=== PATIENT | male | born 1950 | race American Indian/Alaskan Native ===

== ENCOUNTER 2021-07-19 07:05 | Emergency (ER) | payer OTHER ==
--- NOTE | 2021-07-19 08:39 | Emergency Department Report ---
HPI - General Chief Complaint: Urogenital-Male Time Seen by Provider: 07/19/21 08:22 - [facility] HPI: Room 5 The patient is a 71-year-old male present with a chief complaint of urinary retention. Patient has a history of BPH and states he last urinated appro ximately 01: 00 this morning. The patient states that 02: 00 this morning he had the urge to urinate but could not. Patient states continued develop increasing pressure and severe pain in the suprapubic region secondary to urinary retention. In the ED the patient had a Mcallister catheter placed which led to resolution of the patient discomfort. Patient currently asymptomatic. Patient denied any preceding dysuria, fever or nausea or vomiting. The patient states he is followed at the [place] [facility] Past Medical Hx - Past Medical History Previous Medical History?: Yes Additional medical history: "Heart valves problem" CAD, BPH - Surgical History Past Surgical History?: Yes Hx Pacemaker: Yes Hx Appendectomy: Yes Additional Surgical History: Cyst between lungs removed - Family History Family history: no significant - Social History Smoking Status: Current Every Day Smoker (1/2 pack/day) Substance Use Type: Alcohol (Glass of wine daily), Marijuana, Prescribed ED Review of Systems ROS: Stated complaint: CANT URINATE Other details as noted in HPI Constitutional: denies: fever Eyes: denies: eye pain ENT: denies: throat pain Respiratory: no symptoms reported Cardiovascular: denies: chest pain Endocrine: no symptoms reported Gastrointestinal: abdominal pain. denies: nausea, vomiting Genitourinary: other (Urinary retention). denies: dysuria Musculoskeletal: denies: back pain Neurological: denies: headache Physical Exam - Physical Exam Vital Signs: Vital Signs 07/19/21 07:11 Temperature 97.4 F L Pulse Rate 97 H Respiratory 20 Rate Blood Pressure 167/87 O2 Sat by Pulse 99 Oximetry Physical Exam: GENERAL: The patient is well-developed well-nourished male lying on stretcher not appearing to be in acute distress status post Mcallister catheter placed. [] HEENT: Normocephalic. Atraumatic. Extraocular motions are intact. Patient has moist mucous membranes. NECK: Supple. Trachea midline CHEST/LUNGS: Clear to auscultation. There is no respiratory distress noted. HEART/CARDIOVASCULAR: Regular. There is no tachycardia. There is no gallop rub or murmur. ABDOMEN: Abdomen is soft, nontender. Patient has normal bowel sounds. There is no abdominal distention. SKIN: There is no rash. There is no edema. There is no diaphoresis. NEURO: The patient is awake, alert, and oriented. The patient is cooperative. The patient has no focal neurologic deficits. The patient has normal speech. GCS 15 MUSCULOSKELETAL: There is no evidence of acute injury. ED Course Vital Signs 07/19/21 07:11 Temperature 97.4 F L Pulse Rate 97 H Respiratory 20 Rate Blood Pressure 167/87 O2 Sat by Pulse 99 Oximetry ED Medical Decision Making - Lab Data Laboratory Tests 07/19/21 08:35 Urine Color Straw Urine Turbidity Clear Urine pH 8.0 H Ur Specific [place] 1.008 Urine Protein <15 mg/dl Urine Glucose (UA) Neg Urine Ketones Neg Urine Blood Lg Urine Nitrite Neg Urine Bilirubin Neg Urine Urobilinogen < 2.0 Ur Leukocyte Esterase Neg Urine WBC (Auto) 6.0 Urine RBC (Auto) > 182.0 - Differential Diagnosis Urinary retention UTI Critical care attestation.: If time is entered above; I have spent that time in minutes in the direct care of this critically ill patient, excluding procedure time. ED Disposition Clinical Impression: Urinary retention Disposition: 01 HOME / SELF CARE / HOMELESS Is pt being admited?: No Does the pt Need Aspirin: No Condition: Stable Instructions: Acute Urinary Retention, Male, [id number] Additional Instructions: Return to the emergency department should you develop worsening symptoms, inability to tolerate food or liquids, high fever or any other concerns Referrals: [facility] [Outside] - 3-5 Days PARAMJIT MAKI MD [Staff Physician] - 3-5 Days (Dr. Maki is a urologist. Please follow-up with him for further evaluation if you do not already have a urologist) Time of Disposition: 09:52
[2021-07-19 08:54] LABS: Bilirubin,Urine NEG (Negative); Blood,Urine LG (Negative); Color,Urine Straw (Yellow); Protein,Urine <15 mg/dL mg/dL (Negative); Urobilinogen,Urine < 2.0 mg/dL (<2.0)
[2021-07-19 08:55] LABS: RBC,Urine > 182.0 /HPF (0.0-6.0)
[2021-07-19 10:32] VITALS: BP 138/77
== END 2021-07-19 10:26 | disposition home or self-care (01) ==
LOC: ED 07:05
DX: R33.9 Retention of urine, unspecified (principal); Z98.890 Other specified postprocedural states; F17.200 Nicotine dependence, unspecified, uncomplicated
CPT/HCPCS: 51702; 81001; 87086; 99283